=== PATIENT | female | born 1975 | race Caucasian/White ===

== ENCOUNTER → 2017-08-08 16:14 | Outpatient (CLI) | payer OTHER, SELFPAY ==
[2017-08-12 15:15] LABS: HPV Reflexed? NOT INDICATED
== END ==
PROVIDERS: Visit Provider Obstetrics & Gynecology
DX: Z12.4 Encounter for screening for malignant neoplasm of cervix (principal)
CPT/HCPCS: 88175; G0145

== ENCOUNTER 2018-08-14 17:00 | Outpatient (RCR) | payer OTHER, SELFPAY ==
--- NOTE | 2018-08-01 15:55 | HP.PTEVAL_ITS ---
Patient's Visit Information YAMILKA JUNG is a 42 year old F referred to Physical Therapy by Out of Town Doctor with a diagnosis of SPONDYLOLISTHESIS AT L4-5. Date of Evaluation: 08/01/18 Physical Therapist: Michoacano De La Cruz PT, Cert MDT, OCS - Visit Plan Frequency: 2x /Week Duration: 4 Weeks Plan: GRADED DLS FOR ABDOMINAL/BACK ,POSTURAL EX'S,MODALITIES PRN - Subjective Findings: This 42 y/o female presents to physical therapy with low back pain 2 years. Patient has had back 2017 with chiropractor ,then seen orthopedic spine surgeon 2017. Patient decided to Dr Kenyon at [facility] assisted. Did x- rays showed spondylothesis . Dr Kenyon wants MRI . Patient stated canditate for surgery but needs PT befor e MRI.Patients pain is located on right lumbar region. Pain desribed as ache constant. Aggravating factors standing 5 min or walking. Alleviating factors sitting,bending. Denies parathesia/tingling. Patient sleeping okay. Coughing/sneezing -.Bowel/bladder-. Patient pain affects QOL and function.Symptoms increase 12/30. SOCAIL: . VOCATION: [employer] voice - Pain Right Back Pain Intensity (Out of 10): 4 Pain Intensity Range: 10 - Objective POSTURE: WFL. GAIT: normal gabriela. PALAPTION: spondylolsithesis L4-5. SYMMTRIES: align. FLEXABLITY: hams WFL. MMT: quads/hams/hip 4/5,ankle 5/5. LUMBAR ROM: flexion WFL ,extension mod loss, side glides min pain right side. TA AND MULTIFIDAS: poor - Special Tests L/S Slump test left side: Negative L/S Slump test right side: Negative L/S Left Straight Leg Raise: Negative L/S Right Straight Leg Raise: Negative Lumbar Standing: Flexion - Mechanical Response: No effect Lumbar Standing: Flexion - Symptoms During Testing: No effect Lumbar Standing: Flexion - Symptoms After Testing: No effect Lumbar Standing: Extension - Mechanical Response: No effect Lumbar Standing: Extension - Symptoms During Testing: Increases Lumbar Standing: Extension - Symptoms After Testing: No worse Lumbar Lying: Flexion - Mechanical Response: No effect Lumbar Lying: Flexion - Symptoms During Testing: No effect Lumbar Lying: Flexion - Symptoms After Testing: No effect - Goals Goal 1:: Independant with HEP Goal Time Frame: 4-6 Weeks Goal 2:: Improve posture/body mechanics for ADL'S Goal Time Frame: 4-6 Weeks Goal 3:: Patient to decrease lumbar pain by 50% or greater to improve function Goal Time Frame: 4-6 Weeks Goal 4:: Patient increase core strength to good-. Goal Time Frame: 4-6 Weeks Goal 5:: Patient to improbe back LARRY score by 5 points - Rehabilitation Potential Physical Therapy Diagnosis: This patient has pain for [address] x-rays showed spondylolthesis with pain affects ability to stand and walk min,thus benifit from skilled. Patient did say maybe canditate for surgery. Rehabilitation Potential: Good - Anticipated Interventions Patient/Client Instruction: Educate patient on: Condition, Plan of Care For the Purpose of:: To decrease pain, To increase ROM, To improve muscle performance and motor function, To improve ability of physical actions for home/community/work/leisure, To improve health of tissue, To decrease soft tissue restriction, To increase flexibility/ROM, To improve ability to perform tasks related to life management Therapeutic Exercise to Include: Strength training, Body mechanics, Postural training, Flexibilty training, Dynamic Lumbar Stabilization For the Purpose of:: To decrease pain, To increase ROM, To improve muscle performance and motor function, To increase tolerance to activity/condition/position, To improve ability of physical actions for home/community/work/leisure, To improve health of tissue, To decrease soft tissue restriction, To increase flexibility/ROM, To improve ability to perform tasks related to life management TENS: Yes IF ES: Yes Cryotherapy (ice pack, ice massage): Yes Thermo therapy (hot pack): Yes Ultrasound (thermal/non thermal): Yes For the Purpose of:: To decrease pain, To increase ROM, To improve nutrient delivery to tissue, To increase oxygenation perfusion, To improve health of tissue, To decrease soft tissue restriction, To improve ability to perform tasks related to life management Thank you for the opportunity to evaluate your patient. For Medicare and Medicare HMO plans, please review the plan of care and approve it. It will need to be FAXED BACK to us at [phone] for Medicare purposes. For Medicare only, by signing this I certify the plan of care. Please let me know if there are questions or concerns regarding this plan of care. Physician Signature: Date:
--- NOTE | 2018-12-19 08:24 | HP.PTDCNRP_ITS ---
HP - Discharge Summary (1) - Patient Information YAMILKA JUNG was seen in my office for initial evaluation on 08/01/18. The following Plan of Care was established for this patient: Initial Frequency: 2x /Week Initial Duration: 4 Weeks - Anticipated Interventions Patient/Client Instruction: Educate patient on: Condition, Plan of Care For the Purpose of:: To decrease pain, To increase ROM, To improve muscle perfor adalid and motor function, To improve ability of physical actions for home/community/work/leisure, To improve health of tissue, To decrease soft tissue restriction, To increase flexibility/ROM, To improve ability to perform tasks related to life management Therapeutic Exercise to Include: Strength training, Body mechanics, Postural training, Flexibilty training, Dynamic Lumbar Stabilization For the Purpose of:: To decrease pain, To increase ROM, To improve muscle performance and motor function, To increase tolerance to activity/condition/position, To improve ability of physical actions for home/community/work/leisure, To improve health of tissue, To decrease soft tissue restriction, To increase flexibility/ROM, To improve ability to perform tasks related to life management TENS: Yes IF ES: Yes Cryotherapy (ice pack, ice massage): Yes Thermo therapy (hot pack): Yes Ultrasound (thermal/non thermal): Yes For the Purpose of:: To decrease pain, To increase ROM, To improve nutrient delivery to tissue, To increase oxygenation perfusion, To improve health of tissue, To decrease soft tissue restriction, To improve ability to perform tasks related to life management This patient was last seen in our office 08/14/18. Pertinent comments regarding their Physical therapy will appear below: This patient seen for PT with spondylothesis with lumbra pain and radiculopathy. Patient had MRI showed lumbar extrusion disc. Thus patient is d/c to MD. At this point I will be discontinuing this patient from physical therapy. I would be happy to see this patient again in the future if found appropriate by the physician. Thank you! Michoacano De La Cruz, PT, Cert MDT, OCS
== END 2018-08-14 19:00 | disposition home or self-care (01) ==
LOC: PT 17:00
PROVIDERS: Referring Provider Nurse Practitioner; Visit Provider Nurse Practitioner
DX: M43.16 Spondylolisthesis, lumbar region (principal)
CPT/HCPCS: 97110; 97161

== ENCOUNTER → 2018-09-04 17:06 | Outpatient (CLI) | payer OTHER, SELFPAY ==
--- NOTE | 2018-09-04 17:17 | MRI_ITS ---
STUDY: MRI LUMBAR SPINE WITHOUT CONTRAST REASON FOR EXAM: Female, 42 years old. Spondylolisthesis and low back pain TECHNIQUE: Standardized fat and water weighted pulse sequences were obtained in the sagittal and axial planes. COMPARISON: None FINDINGS: There is intramedullary bone marrow edema within the mid to upper L5 vertebral body and L4 vertebral body in association with linear low signal consistent with recent hairline fractures. T12-L1: Normal endplates. Normal disc height, hydration and morphology. Normal bilateral facet joints. Normal central canal and bilateral lateral recesses. Normal bilateral intervertebral neural foramina. Normal lumbar lordosis. There is no substantial scoliosis. Normal conus medullaris that terminates at the L1-2: Normal endplates. Normal disc height, hydration and morphology. Normal bilateral facet joints. Normal central canal and bilateral lateral recesses. Normal bilateral intervertebral neural foramina. L2-3: Normal endplates. Normal disc height, hydration and morphology. Normal bilateral facet joints. Normal central canal and bilateral lateral recesses. Normal bilateral intervertebral neural foramina. L3-4: Normal endplates. Normal disc height, hydration and morphology. Normal bilateral facet joints. Normal central canal and bilateral lateral recesses. Normal bilateral intervertebral neural foramina. L4-5: Grade 1 spondylolisthesis. Narrowed disc space with endplate degeneration in association with moderate-sized bulging disc osteophyte complex in association with central disc extrusion and cephalad extension of the disc posterior to the elbow for vertebral body. Bilateral facet arthropathy and thickening of ligamenta flava.. Mild to moderate narrowing of the central canal. Severe bilateral recess and neuroforaminal stenosis exaggerated by shortened pedicles. L5-S1: Normal endplates. Normal disc height, desiccation and minor bulge in association with small broad-based central disc protrusion.. Mild facet arthropathy.. Mild narrowing of the central canal. Normal bilateral lateral recesses. Normal bilateral intervertebral neural foramina. Normal visualized sacral ala. Normal visualized paraspinous soft tissue structures. MRI/Spine Lumbar (Routine) IMPRESSION: Findings which may be consistent with recent hairline fractures of L4 and L5 with intramedullary bone marrow edema in association with spondylolisthesis. There is also moderate to severe spinal stenosis secondary to bulging disc osteophyte complex facet arthropathy and exaggerated by foreshortened pedicles. Minor spinal stenosis at L4-5 secondary to minor bulging annulus with small broad-based central disc protrusion and facet arthropathy Electronically Signed: Keyur Dukes MD at 18:29 EDT , Service support ,
== END ==
PROVIDERS: Referring Provider Nurse Practitioner; Visit Provider Nurse Practitioner
DX: M43.16 Spondylolisthesis, lumbar region (principal)
CPT/HCPCS: 72148

== ENCOUNTER → 2019-03-06 10:44 | Outpatient (CLI) | payer OTHER, SELFPAY ==
[2019-03-06 12:22] LABS: Absolute Neutrophil Count 5.4 X10^3/uL (2.0-7.7); Basophil# 0.06 X10^3/uL; Basophil% 0.7 % (0-1); Eosinophils% 3.7 % (0-5); Hematocrit 43.8 % (37-47); Hemoglobin 14.7 g/dL (12.0-15.0); Lymphocyte % 20.7 % (19-41); Mean Corp Hgb Conc 33.6 g/dL (32-36); Mean Corpuscular Hgb 32.7 pg (27.0-32.0); Mean Corpuscular Volume 97.6 fL (81-99); Mean Platelet Vol. 9.7 fl (6.2-12.0); Monocyte# 0.67 X10^3/uL; Monocyte% 8.2 % (0-10); NRBC Flagged by Analyzer 0 % (0-5); Neutrophil # 5.43 X10^3/uL (2.7-7.7); Neutrophil % 66.2 % (47-70); Platelet Count 371 K/mm3 (150-450); RBC Distribution Width CV 12.2 % (11.6-14.6); RBC Distribution Width SD 43.9 fl (35.1-43.9); Red Blood Count 4.49 M/mm3 (4.2-5.4); White Blood Count 8.2 K/mm3 (4.4-11.0)
[2019-03-06 12:37] LABS: ALB/GLOB Ratio 0.9 RATIO (0.9-2.4); AST(SGOT) 25 U/L (15-37); Alanine Aminotransfer ALT/SGPT 37 U/L (13-56); Albumin, Serum 3.6 g/dL (3.2-5.0); Alkaline Phosphatase 33 U/L (45-117); Anion Gap 6 (5-15); BUN 10 mg/dL (7-18); Calcium,Total 9.5 mg/dL (8.5-10.1); Chloride 107 mmol/L (98-107); Creatinine, Serum 0.52 mg/dL (0.55-1.02); EST Glomerular Filtration Rate 136 mL/min (>60); Est Glom Filt Rate - Afr Amer 164 mL/min (>60); Globulin 3.8 g/dL (2.2-4.2); Glucose 83 mg/dL (74-106); Potassium 4.1 mmol/L (3.5-5.1); Protein, Total 7.4 g/dL (6.4-8.2); Sodium Level 138 mmol/L (136-145)
[2019-03-09 04:07] LABS: HEPATITIS B SURFACE AG Negative (Negative); Hepatitis A AB, Total Negative (Negative); Hepatitis A IgM Antibody Negative (Negative); Hepatitis B Core AB IgM Negative (Negative); Hepatitis B Core Ab Total Negative (Negative); Hepatitis C Ab 0.2 s/co ratio (0.0-0.9); QNTFERON TB Mitogen Value > 10.00 IU/mL (.); QNTFERON TB Nil Value 0.05 IU/mL (.); QNTFERON TB1+ Ag Value 0.05 IU/mL (.); QNTFERON TB2+ Ag Value 0.04 IU/mL (.)
[2019-03-09 16:12] LABS: Hep B Surface Antibodies Non Reactive (.); QNTIFERON TB Positive Criteria Negative (Negative)
== END ==
PROVIDERS: Referring Provider Dermatology Pediatric Dermatology; Visit Provider Dermatology Pediatric Dermatology
DX: L40.0 Psoriasis vulgaris (principal); L71.0 Perioral dermatitis; M43.16 Spondylolisthesis, lumbar region; Z79.899 Other long term (current) drug therapy
CPT/HCPCS: 36415; 80053; 85025; 86480; 86704; 86705; 86706; 86708; 86709; 86803; 87340

== ENCOUNTER → 2023-09-13 | Outpatient (CLI) | payer OTHER, SELFPAY ==
[2023-09-19 13:07] LABS: HPV APTIMA, High Risk Negative (Negative)
== END | disposition home or self-care (01) ==
PROVIDERS: PCP Nurse Practitioner; Referring Provider Advanced Practice Midwife; Visit Provider Advanced Practice Midwife
DX: Z12.4 Encounter for screening for malignant neoplasm of cervix (principal)
CPT/HCPCS: 87624; 88175; G0145

== ENCOUNTER → 2023-09-22 | Outpatient (CLI) | payer OTHER, SELFPAY ==
--- NOTE | 2023-09-22 08:08 | BI_ITS ---
MAMMOGRAPHY - BILATERAL SCREENING REASON FOR EXAM: Female, 47 years old. Routine annual screening examination. PERTINENT HISTORY: Grandmother with breast cancer. TECHNIQUE: Digital bilateral breast rain (3D mammographic acquisition) in the CC and MLO projections. 2-D mediolateral oblique (MLO) and craniocaudad (CC) views of both breasts were obtained. CAD: Full Field Digital Mammography with Computer Added Detection was performed. COMPARISON: Comparison is made with prior outside examination dated September 09, 2022. FINDINGS: Breast Composition: The breasts are heterogeneously dense, which may obscure small masses. There are no dominant masses or suspicious calcifications. No other significant abnormalities are identified. There has been no significant change since the prior study. BI/SCRN MAMM (CAD)W/RAIN BILAT IMPRESSION: Stable bilateral screening mammogram. Yearly follow-up mammogram recommended. (A) ASSESSMENT CATEGORY: BIRADS Category 1: Negative. A letter regarding these results will be sent to the patient by the facility within 30 days. Approximately 10% of breast cancers are not detected by mammography. A normal mammogram should not delay biopsy of a clinically suspicious abnormality. [id number] Electronically Signed: Jose D Chatman MD at 8:40 EDT ,
== END | disposition home or self-care (01) ==
LOC: OPBI 08:08
PROVIDERS: PCP Nurse Practitioner; Referring Provider Advanced Practice Midwife; Visit Provider Advanced Practice Midwife
DX: Z12.31 Encounter for screening mammogram for malignant neoplasm of breast (principal)
CPT/HCPCS: 77063; 77067

== ENCOUNTER → 2023-09-28 | Outpatient (CLI) | payer OTHER, SELFPAY ==
--- NOTE | 2023-09-28 07:50 | US_ITS ---
STUDY: ULTRASOUND OF THE FEMALE PELVIS - COMPLETE REASON FOR EXAM: Female, 47 years old. Check IUD placement -- can''t find IUD string LMP: September 20, 2023. TECHNIQUE: Transabdominal and Transvaginal TECHNICAL QUALITY: Adequate. COMPARISON: None. FINDINGS: The uterus is anteverted and is in a midline position. The uterus measures 9.1 cm x 5.4 cm x 3.9 cm. Normal uterine cervix. The endometrium measures 3 mm in thickness, and is hyperechoic. There is no demonstrated endometrial mass. There is a 3.9 cm x 3.9 cm x 4.2 cm fundal fibroid. I.U.D. - The patient does have an I.U.D. . The IUD is partially within the fundal myometrium. Questionable localized extension in to the wall of the myometrium. The right ovary is visualized. The right ovary measures 2.9 cm x 2.6 x 2.4 cm. There is no right ovarian cyst or ovarian mass. There is no visualized right adnexal mass or complex lesion. There is normal arterial and normal venous vascularity. The left ovary is visualized. The left ovary measures 3.4 cm x 2.8 cm x 1.7 cm. There is a 3.1 centimeter by 2.2 cm x 1.4 cm left ovarian cyst. There is no visualized left adnexal mass or complex lesion. There is normal arterial and normal venous vascularity. There is no fluid in the cul-de-sac. The pre void volume of the bladder was 26 ml. US/Pelvic (Non ) IMPRESSION: Endometrial fibroid. An IUD is seen within the endometrium extending into the fundal portion of the uterus and possible through the myometrium. Left ovarian cyst measuring 3.1 cm x 2.2 cm x 1.4 centimeters. Electronically Signed: Jose D Chatman MD at 11:02 EDT ,
== END | disposition home or self-care (01) ==
LOC: US 07:50
PROVIDERS: PCP Nurse Practitioner; Referring Provider Advanced Practice Midwife; Visit Provider Advanced Practice Midwife
DX: Z30.430 Encounter for insertion of intrauterine contraceptive device (principal)
CPT/HCPCS: 76830; 76856

== ENCOUNTER 2023-12-13 07:39 | Day surgery (SDC) | payer OTHER, SELFPAY ==
[2023-12-08 18:03] LABS: Hematocrit 39.1 % (37-47); Hemoglobin 13.2 g/dL (12.0-15.0); Mean Corp Hgb Conc 33.8 g/dL (32-36); Mean Corpuscular Hgb 32.4 pg (27.0-32.0); Mean Corpuscular Volume 96.1 fL (81-99); Platelet Count 411 K/mm3 (150-450); RBC Distribution Width CV 12.5 % (11.6-14.6); RBC Distribution Width SD 44.1 fl (35.1-43.9); Red Blood Count 4.07 M/mm3 (4.2-5.4); White Blood Count 10.8 K/mm3 (4.4-11.0)
[2023-12-08 18:33] LABS: Estradiol 112.9 pg/mL; Luteinizing Hormone 7.1 mIU/mL; Thyroid Stim Hormone (TSH) 1.23 uIU/mL (0.358-3.74)
[2023-12-13] VITALS (7 sets, daily range): BP systolic 93–118; BP diastolic 49–74; PULSE 74–93; RESP 16; TEMP 36.1–36.6; O2SAT 96–99; BMI 24.1
[2023-12-13] MEDS: Lactated Ringers 1,000 ML 15 ML IV (08:03)
[2023-12-13 08:05] LABS: Internal QC Validated? YES +Cl - CLEAR BKGD; Pregnancy, Urine Negative Negative
--- NOTE | 2023-12-13 08:09 | PRE.ANES_ITS ---
ASA Classification* ASA Classification ASA Classification: 2 Assessment & Plan Anesthesia* Anesthesia Assessment Anesthesia Assessment: Discussed sedation and/or anesthesia options, risks, benefits, and alternatives with patient/parents/legal guardian/POA. Questions invited. The patient/parents/legal guardian/POA seems to understand and agrees to proceed with anesthesia plan. Reviewed the physical assessment, medical history, allergy history and patient home medications list prior to surgery/procedure/anesthetic and documented any changes. Performed airway and anesthesia risk assessments. Anesthesia Type Anesthesia Type: MAC Anesthesia Focused Assessment* Temperature: 97 F Pulse Rate: 93 Blood Pressure: 118/74 Respiratory Rate: 16 Pulse Ox: 99 Airway Assessment Mouth opens: >3 cm Mallampati Score: II Focused Labs Anesthesia Preop lab: CBC WBC 10.8 K/mm3 (4.4-11.0) 12/08/23 15:57 RBC 4.07 M/mm3 (4.2-5.4) L 12/08/23 15:57 Hgb 13.2 g/dL (12.0-15.0) 12/08/23 15:57 Hct 39.1 % (37-47) 12/08/23 15:57 Plt Count 411 K/mm3 (150-450) 12/08/23 15:57 CHEMISTRY Potassium 4.0 mmol/L (3.5-5.1) 12/08/23 15:57 Sodium 138 mmol/L (136-145) 03/06/19 10:53 BUN 10 mg/dL (7-18) 03/06/19 10:53 Creatinine 0.52 mg/dL (0.55-1.02) L 03/06/19 10:53 Glucose 83 mg/dL (74-106) 03/06/19 10:53 TSH 1.23 uIU/mL (0.358-3.74) 12/08/23 15:57 COAG Urine Test Negative Negative 12/13/23 07:53 Pre-Assessment Diagnosis/Proposed Procedure Planned Operative Procedure(s): Hysteroscopy,Diagnostic, Removal of Intrauterine Device Anesthesia History 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 When Was Last Pacemaker Check QUESTION #4 FULL TEXT: You/Your Family Experience fever (hyperthermia) with Anesthesia Last Oral Intake Last Oral intake: Last Oral Intake NPO since 00:00 12/13/23 07:57 Meds taken in AM with sips of water? 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 Female Yes 12/06/23 10:15 HX of Motion Sickness No 12/06/23 10:15 HX of N/V After Surgery No 12/06/23 10:15 Non-Smoker No 12/06/23 10:15 Duration of Surgery greater No 12/06/23 10:15 than 60 minutes Number of Risk Factors 1 12/06/23 10:15 PONV Score Low Risk 12/06/23 10:15 Height & Weight Height & Weight: Anesthesia: Height & Weight Height 5 ft 2 in 12/13/23 07:57 Weight: 59.874 kg 12/13/23 07:57 Body Mass Index (BMI) 24.1 12/13/23 07:57 Respiratory Assessment Respiratory Assessment - frog or oyster farmworker: Respiratory Tract Infection Hx - frog or 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 Has anyone observed you stop No 12/06/23 10:15 breathing during sleep? STOP Results Negative 12/06/23 10:15 QUESTION #5 FULL TEXT : Do you snore loudly (louder than talking or can be heard through closed doors)? 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 Specify any problems Hx of Preganancy in last 3 No 12/06/23 10:15 Months Nurse Filling Out Transfusion VCHRISTIN 12/06/23 10:15 & Questions: Date: 12/06/23 12/06/23 10:15 Time: 10:15 12/06/23 10:15 Patient unable to answer at this time (ie. confused, unrespo /Reproduction History /Reproductive History - frog or oyster farmworker: /Reproductive Hx- frog or oyster farmworker Hx Now No 12/06/23 10:15 Gestational Age (in weeks): EDC: Hx Hx Para Hx Section SAB No 12/06/23 10:15 Active Medications Active Medications: Current Medications Generic Name Dose Route Start Last Admin Trade Name Freq PRN Reason Stop Dose Admin Cefotetan Disodium 2 gm/ 100 mls @ 200 mls/hr 12/13/23 09:20 Sodium Chloride IV 12/13/23 09:49 PREOP ONE Lactated Ringer's 1,000 mls @ 15 mls/hr 12/13/23 07:45 12/13/23 08:03 IV 15 mls/hr .Q48H MYKEL Administration PFSH Medical History Alcohol use History of steroid therapy Back pain Smoker Acne Anxiety Home Medications ?Medication ?Instructions ?Recorded ?Last Taken ?Type levonorgestrel 21 mcg/24 hr (up to 1 device intrauterine ONCE 09/13/23 Unknown History 8 years) 52 mg intrauterine device (Mirena) spironolactone 100 mg tablet 100 mg PO DAILY 09/13/23 Unknown History buspirone 15 mg tablet 15 mg PO TID 10/25/23 Unknown History Allergy/AdvReac Type Severity Reaction Status Date / Time No Known Allergies Allergy Verified 12/13/23 07:56 Family History Mother Diabetes Hypertension Father Myocardial infarction Surgical History Hx of surgical procedure S/P tubal ligation Social History Smoking Status: Current every day smoker tobacco type: cigarettes alcohol intake: current substance use type: does not use caffeine: Yes what type of physical activity do you participate in: aerobics frequency: daily seatbelt use: always do you feel safe at home: Yes additional social history: -Deep Review of Systems (Anesthesia) ROS Narrative System reviewed and no additional complaints, except as documented.
--- NOTE | 2023-12-13 10:46 | HP.PCM_ITS ---
History and Physical Date of Admission: 12/13/23 Intake Vital Signs 09/12/2412:06 10/06/2412:24 10/06/2412:26 Height 5 ft 2.75 in 5 ft 2.75 in 5 ft 2.75 in Weight: 132 lb 4 oz 133 lb BMI 23.6 23.7 BP 116/76 133/82 H Intake Visit Reasons: Consult for surgery to remove IUD Sliding Joint Maker Required: No Is patient in pain?: No Allergies No Known Allergies Allergy (Verified 10/07/23 13:24) Medications ?Medication ?Instructions ?Recorded ?Confirmed ?Type buspirone 5 mg tablet 5 mg PO BID 09/13/23 10/07/23 History levonorgestrel 21 mcg/24 hr (up to 1 device intrauterine ONCE 09/13/23 10/07/23 History 8 years) 52 mg intrauterine device (Mirena) spironolactone 100 mg tablet 100 mg PO DAILY 09/13/23 10/07/23 History Post menopausal: No Patient : No : No PFSH Medical History Acne Anxiety Surgical History S/P tubal ligation Family History Mother Diabetes HypertensionFather Myocardial infarction Social History Smoking Status: Current every day smoker alcohol intake: current substance use type: does not use caffeine: Yes what type of physical activity do you participate in: aerobics frequency: daily seatbelt use: always do you feel safe at home: Yes additional social history: -Deep HPI Consult for surgery to remove IUD Details: YAMILKA JUNG is a 47 year old who presents for discussion about embedded IUD. Ultrasound shows that the IUD is likely growing into the myometrium, possibly into a fibroid. She wonders if she could be in menopause and if will need another IUD for menses control or not. This IUD was placed about [address] shepherd and she has not experienced any bleeding at all. She also had a tubal ligation in the past. History 2 Elective abortions Hx Para 2 Spontaneous abortions Hx # Term Pregnancies Ectopic pregnancies Hx # Pregnancies Multiple births # of living children Past Pregnancies Del. Date Name GA/Weeks Outcome Route Bth Weight Gen [facility] [place] Unknown [place] ROS Const ROS Unobtainable: All systems reviewed & are unremarkable except as noted in H Resp Resp: Reports system reviewed and no additional complaints, except as documented; Denies cough GI GI: Reports as per HPI Psych Psych: Reports system reviewed and no additional complaints, except as documented Exam Const General: cooperative, healthy appearing, comfortable and no acute distress Resp Effort & Inspection: normal respiratory effort General: bimanual renal exam normal bilaterally External Female Exam: normal appearance of the urethra Urethra: normal appearance of the urethra Speculum Exam - Vagina: normal appearance of the vagina Speculum Exam - Cervix: normal appearance of the cervix Bimanual Exam- Adnexa, other: normal adnexae and normal Pelvic Support: normal Other: string not visible. Long thomas used to attempt to grasp the string but unable to reach it. Skin General: no rashes or lesions noted Psych Appearance: grossly normal Speech and Movement: speech and movement normal Coding Level of Care Code Off vis,est,level 4 Diagnoses Malpositioned intrauterine device (IUD) T83.32XA Assessment and Plan Assessment and Plan (1) Malpositioned intrauterine device (IUD): Status: Acute Comment: plan for hysteroscopy IUD removal Plan: After discussing the patient's diagnosis and treatment plan options, patient wis hes to proceed with surgical management. I have discussed with the patient the risks, benefits, and alternatives of the procedure which include but are not limited to risks of anesthesia, bleeding, infection, possible damage to bowel, bladder, or surrounding vasculature which could lead to additional surgery to evaluate any complications. Patient agrees to procedure and wishes to proceed. ACOG/uptodate references given for additional information regarding procedure.
[2023-12-13] MEDS: Cefotetan 2 GM in 0.9% NS 100 ML IV (11:05)
[2023-12-13] MEDS: Lidocaine 1% (20 ml mdv) 20 ML Vial (11:14)
--- NOTE | 2023-12-13 11:30 | OP.PCM_ITS ---
Problems Associated Problem List Diagnoses (1) Malpositioned intrauterine device (IUD): Report of Operation Date of Procedure: 12/13/23 Pre-Operative Diagnosis: malpositioned IUD, non-visible strings Post-Operative Diagnosis: malpositioned IUD, non-visible strings Surgery/Procedure Performed:: hysteroscopic removal of IUD Description of Surgical Findings:: IUD in transverse position within endometrium easily removed without difficulty Surgeon: Carla Balderas Type of Anesthesia: MAC and Topical Anesth Anesthesiologist: Dangelo Lora Specimen's removed: Intrauterine device Drains: none Estimated Blood Loss (mL): none Description of Procedure: Patient was prepped and draped in a normal sterile fashion under MAC anesthesia. A weighted speculum was placed in the vagina and the anterior lip of the cervix was grasped with a single-tooth tenaculum. A paracervical block was placed with 1% lidocaine. Cervix was progressively dilated to allow passage of a 5 mm hysteroscope. The lining was fully visualized and noted to have a transverse lying IUD. Uterine sounded to 8 cm. The IUD was grasped with a polyp forceps device and removed without difficulty All instruments were removed from the vagina and excellent hemostasis was noted. Patient was awoken and taken to recovery in stable condition. Complications none Admit VTE Documentation VTE Present on Admission: No VTE Mechan Device Prophylaxis: SCD's VTE Pharm Prophylaxis ordered?: No Multi Select Codes Urinary/Genital Urinary/Genital CPT Codes: 04842 Hysteroscopy, diagnostic (removal of In trauterine device )
--- NOTE | 2023-12-13 11:33 | PCM.POST.ANE ---
Anesthesia: Postop Eval I Current Vital Signs Temperature: 97 F Pulse Rate: 74 Blood Pressure: 93/49 Respiratory Rate: 16 Pulse Ox: 96 Assessment Airway patent: Yes Spontaneous unlabored respirations: Yes Mental status: Awake nausea: No Vomiting: No Anesthesia Complication: No Fluid Hydration Crystalloid volume administer (ml): 600 Total IV fluid infused: 600 Progress Note Anesthesia document: Postop Eval 1 completed: Yes
--- NOTE | 2023-12-13 12:00 | DCINST_ITS ---
Discharge Instructions Diet Discharge Diet: No restrictions Activity Discharge Activity: Return to Normal Activity, May Shower and May Take a Tub Bath (after 1 week) May resume sexual activity in: 1-2 weeks Weight Bearing Status: Weight bearing as tolerated Lifting Restrictions: none Dressing / Incision Call your doctor if you observe: Fever of 101 or Higher, Using more than 1 pad per hour, Shortness of breath and Uncontrolled pain Follow Up Care Please Follow Up With: Carla Balderas DO When: Call [phone] to schedule appointment. Test Results: Test results from this visit will be discussed in further detail at your follow- up appointment, if applicable. Discharge Plan Admission Primary Reason for Your Visit: hysteroscopic removal of retained IUD Attending Provider: Carla Balderas Primary Care Provider: Nora Miramontes NP Consulting Providers: Tom Nelson Instructions Print Language: French Discharge Orders/Prescriptions Prescriptions: No Action Mirena 21 mcg/24 hours (8 yrs) 52 mg intrauterine device 1 device intrauterine ONCE Rx Instructions: as a single dose spironolactone 100 mg tablet 100 mg PO DAILY buspirone 15 mg tablet 15 mg PO TID Referrals / Follow Up: Nora Miramontes [employer], [employer] [Primary Care Provider] - Disposition Disposition (needs filled in before D/C Order can be placed): Home, Self Care
--- NOTE | 2023-12-13 12:29 | PCM.POSTANE2 ---
Anesthesia Postop Eval I Sum Postop Eval Completion status Anesthesia document: Postop Eval 1 completed: Yes Anesthesia Postop Eval I Summary Anesthesia Postop Eval I Summary: Anesthesia Postop Eval I: Assessment Summary Airway patent Yes 12/13/23 11:34 [email or web address] Spontaneous unlabored Yes 12/13/23 11:34 [email or web address] respirations Mental status Awake 12/13/23 11:34 [email or web address] nausea No 12/13/23 11:34 [email or web address] Vomiting No 12/13/23 11:34 [email or web address] Anesthesia Postop Eval I: Fluid Summary Crystalloid volume administer 600 12/13/23 11:34 [email or web address] (ml) Colloids volume administered ( ml) Blood Product volume administered (ml) Total IV fluid infused 600 12/13/23 11:34 [email or web address] Anesthesia Postop Eval I: Summary Notes Anesthesia Complication No 12/13/23 11:34 [email or web address] Anesthesia Complication Comment: Post-operative progress note Anesthesia: Postop Eval II Evaluation Mental status: Awake and Calm Pain Level: 1 nausea: No Vomiting: No Complications Anesthesia Complication: No
== END 2023-12-13 12:08 | disposition home or self-care (01) ==
LOC: SDC 07:39 → AC 07:39
PROVIDERS: Physician Assistant Medical; PCP Nurse Practitioner; Referring Provider Obstetrics & Gynecology; Visit Provider Obstetrics & Gynecology
PROC: 0UDB8ZZ Extraction of Endometrium, Via Natural or Artificial Opening Endoscopic (ICD-10-PCS; CPT 58558; principal; 2023-12-13 09:00)
DX: T83.32XA Displacement of intrauterine contraceptive device, initial encounter (principal); F17.200 Nicotine dependence, unspecified, uncomplicated; F41.9 Anxiety disorder, unspecified; Z79.899 Other long term (current) drug therapy; X58.XXXA Exposure to other specified factors, initial encounter
CPT/HCPCS: 58562; 00952; 36415; 81025; 82670; 83002; 84132; 84443; 85027; J7120; J2405